=== PATIENT | female | born 1985 | race Caucasian/White ===

== ENCOUNTER 2023-04-07 09:29 | Emergency (ER) | payer OTHER, SELFPAY ==
[2023-04-07 09:35] VITALS: BP 165/99
[2023-04-07 11:59] VITALS: BP 140/84
--- NOTE | 2023-04-07 15:24 | ED.GENMED ---
History of Present Illness
General
Chief Complaint: Fall
Source: patient
Exam Limitations: none
Time Seen by Provider: 04/07/23 09:50
Nursing documentation reviewed up to this point in time: agreed with
Travel History
Have you had any contact with someone who has COVID-19?: No
Do you have any symptoms of coronavirus? Fever > 100 degrees, chills, cough, shortness of breath, sore throat, loss of taste or smell, muscle aches, or headache?: No
History of Present Illness
History of Present Illness:
37-year-old female with past medical history of gastric sleeve presenting to the emergency department after slip and fall on the ice this morning landing on her right side hitting her elbow but denying any significant injury to the area also think
she may have hit the side of her abdomen. No abdominal pain does have a very slight cramping sensation that she describes as very minimal. She is currently 13 weeks . Denies any additional concerns no headache no head trauma no loss of
consciousness no neck pain no numbness or weakness
Past History
Past History
ED Past Medical History: Other (Pancreatitis, Gestational diabetes., PCOS)
ED Past Surgical History: Cholecystectomy, Gynecological ( �2) and Other (BREAST)
Patient has exhibited threatening behavior?: No
PSI?: No
Social History
Tobacco: Former smoker
Alcohol: None
Drug: None
Personal:
Living: with family
Employment: Employed
Family History
Family History: Negative Diabetes, Hypertension or CAD
Review of Systems
Review of Systems
Allergies reviewed?: Yes
All Other Systems: ROS reviewed and negative except as documented in HPI and ROS
Phy Exam
Physical Exam
Physical Exam:
GENERAL: Alert , in no apparent distress
EYE: pupils equal and reactive
NECK: Supple, no significant adenopathy.
ENT: o/p clr, mmm.
CARDIAC: Regular rate and rhythm .
LUNGS: Clear breath sounds bilaterally, no acute respiratory distress, no wheezes/rales/rhonchi
ABDOMEN: Slightly gravid abdomen upper abdomen with no tenderness no r/g, no cvat
NEUROLOGICAL: Alert and oriented, no focal neuro deficits
SKIN: Warm and dry, skin intact.
MUSCULOSKELETAL: No edema, well perfused.
PSYCH: Normal and appropriate interaction.
Course
Orders/Labs/Results
Orders:
Orders
04/07/23 11:21
US Limited Urgent
Comment:
Reason For Exam: 13 weeks pain
Vital Signs
Initial and Last Documented VS:
Initial Vital Signs
Temp Pulse Resp BP Pulse Ox
98.0 F 105 18 165/99 100
04/07/23 09:35 04/07/23 09:35 04/07/23 09:35 04/07/23 09:35 04/07/23 09:35
Last Documented Vital Signs
Temp Pulse Resp BP Pulse Ox
98.4 F 71 17 140/84 99
04/07/23 11:59 04/07/23 11:59 04/07/23 11:59 04/07/23 11:59 04/07/23 11:59
MDM/Problems Addressed
MDM/Problems Addressed:
37-year-old female presenting to the emergency department for assessment with concerns that she may have slightly hit the right side of her abdomen in setting of early . Patient is following and having to for care. On arrival
patient well-appearing no acute distress no abdominal pain due to patient's concern ultrasound was obtained that did not show emergent pathology patient otherwise stable for discharge no signs of emergent injuries. Will follow-up as an outpatient
with lease operator.
*Critical Care Note
Total Time (30-74mins, 75-104mins- exclusive of procedures): Not Applicable
ED Attending Note
-
Portions of this chart may have been created with voice recognition software.� Occasional wrong word or��sound alike� substitutions may have occurred due to the inherent limitations of voice recognition software.
Discharge Plan
Departure
Patient Disposition: Home (Routine Discharge)
Date of Disposition: 04/07/23
Time of Disposition: 15:24
Patient with high blood pressure during this ER visit?: No
Condition: Good
Covid-19: Not Applicable
Discharge Problem:
Fall
Prescriptions:
No Action
sucralfate [Carafate] 1 GM tablet
1 g PO BID
omeprazole 40 MG capsule,delayed release(DR/EC)
40 mg PO DAILY
prednisone 50 MG tablet
50 mg PO DAILY Qty: 7 0RF
gabapentin 100 MG capsule
100 mg PO TID Qty: 30 2RF
hydrocodone-acetaminophen 1 EACH tablet
1 ea PO Q4H PRN (Reason: pain) Qty: 15 0RF
doxycycline hyclate 100 mg capsule
100 mg PO BID Qty: 10 0RF
sulfamethoxazole-trimethoprim [Bactrim DS] 800-160 mg tablet
1 tab PO BID Qty: 14 0RF
prednisone 10 mg Tablet
See Rx Instructions .ROUTE .COMPLEX Qty: 30 0RF
Rx Instructions:
Take By Mouth:
40 mg daily x3 days, 30 mg daily x3 days,
20 mg daily x3 days, 10 mg daily x3 days.
nitrofurantoin monohyd/m-cryst [Macrobid] 100 mg capsule
100 mg PO Q12H 7 Days Qty: 14 0RF
phenazopyridine [Pyridium] 100 mg tablet
100 mg PO TID PRN (Reason: Pain) Qty: 7 0RF
Referrals:
Iwona Auguste DO [Active] - Follow up in 10 days
Bonnie Owen DO [Family Provider] -
Activity Restrictions/Additional Instructions:
You came to the emergency department today with concerns of a fall. You had an assessment due to the fact that you are 13 weeks with an ultrasound that did not show any emergent issues. Please follow closely with your lease operator.
Return to the emergency department for any worsening, new or concerning symptoms.
Interventions
Interventions:
*Risk Screen - Suicide Last Done: 04/07/23 09:35
*General Assessment Last Done: 04/07/23 09:35
*Neglect/Abuse Screening Last Done: 04/07/23 09:35
ED-Female Genitourinary Assessment Last Done: 04/07/23 09:50
ED-Musculoskeletal Assessment Last Done: 04/07/23 09:50
ED- Neurological Assessment Last Done: 04/07/23 10:49
ED-Skin Assessment Last Done: 04/07/23 09:50
[2023-04-07 15:44] VITALS: BP 134/78
== END 2023-04-07 15:47 | disposition home or self-care (01) ==
LOC: EMR 09:29
PROVIDERS: EMERGENCY PHYSICIAN Emergency Medicine; FAMILY PHYSICIAN Student in an Organized Health Care Education/Training Program
DX: O99.891 Other specified diseases and conditions complicating pregnancy (principal); W00.0XXA Fall on same level due to ice and snow, initial encounter; Z3A.13 13 weeks gestation of pregnancy; Z87.891 Personal history of nicotine dependence
CPT/HCPCS: 99284; 76815